=== PATIENT | male | born 1950 | race Caucasian/White ===

== ENCOUNTER → 2023-12-08 11:17 | Outpatient (REF) | payer MEDICARE, OTHER, SELFPAY | LOC: RAD 11:17 | PROVIDERS: ATTENDING PHYSICIAN Nurse Practitioner Adult Health; FAMILY PHYSICIAN Family Medicine | DX: Z87.891 Personal history of nicotine dependence (principal) | CPT/HCPCS: 71271 ==

== ENCOUNTER → 2023-12-29 11:21 | Outpatient (REF) | payer MEDICARE, OTHER, SELFPAY | LOC: HWRAD 11:21 | PROVIDERS: ATTENDING PHYSICIAN Family Medicine | DX: R10.32 Left lower quadrant pain (principal); R19.4 Change in bowel habit | CPT/HCPCS: 74177; Q9967 ==

== ENCOUNTER → 2025-01-31 13:13 | Outpatient (REF) | payer MEDICARE, OTHER, SELFPAY | LOC: HWRAD 13:13 | PROVIDERS: ATTENDING PHYSICIAN Family Medicine | DX: Z87.891 Personal history of nicotine dependence (principal) | CPT/HCPCS: 71271 ==

== ENCOUNTER 2025-02-26 06:17 | Day surgery (SDC) | payer MEDICARE, OTHER, SELFPAY ==
[2025-02-19 08:57] LABS: Hematocrit 46.9 % (39.0-52.0); Hemoglobin 16.1 g/dL (13.0-18.0); Mean Corp Hgb Conc. 34.3 g/dL (33.0-37.0); Mean Corpuscular Volume 92.3 fL (80.0-94.0); Platelet Count 207 10^3/uL (130-400); Red Cell Dist. Width 12.2 % (11.5-14.5)
[2025-02-19 09:04] LABS: INR 0.95; PT 13.2 Sec (11.4-14.6)
[2025-02-19 09:05] LABS: APTT 29.9 Sec (23.4-35.0)
[2025-02-19 09:59] LABS: Blood Urea Nitrogen 17 mg/dl (9-20); Calcium 9.5 mg/dl (8.4-10.2); Carbon Dioxide 27 mmol/L (22-30); Chloride 103 mmol/L (98-107); Glucose 107 mg/dl (70-99); Potassium 4.2 mmol/L (3.5-5.1); Sodium 139 mmol/L (135-145); eGFR > 60.00
[2025-02-19 14:05] VITALS: BMI 28.7
[2025-02-26] VITALS (10 sets, daily range): BP systolic 133–169; BP diastolic 76–101; BMI 28.7
[2025-02-26] MEDS: VENTOLIN NEBULES 2.5 MG INH (07:10)
[2025-02-26] MEDS: ERYTHROMYCIN 0.5% OPHTHALMIC OINTMENT 1 APPLIC OPHTH (10:57)
== END 2025-02-26 12:00 | disposition home or self-care (01) ==
LOC: GI 06:17
PROVIDERS: ATTENDING PHYSICIAN Internal Medicine Critical Care Medicine; FAMILY PHYSICIAN Family Medicine
DX: R91.8 Other nonspecific abnormal finding of lung field (principal); R91.1 Solitary pulmonary nodule; C34.11 Malignant neoplasm of upper lobe, right bronchus or lung
CPT/HCPCS: 31629; 31628; 31624; 31627; 31623; 31654; 36415; 71045; 76000; 80048; 81459; 85027; 85610; 85730; 87015; 87070; 87102; 87116; 87205; 88112; 88173; 88305; 88333; 88341; 88342; 94640; C1887

== ENCOUNTER → 2025-03-19 12:10 | Outpatient (REF) | payer MEDICARE, OTHER, SELFPAY | LOC: RAD 12:10 | PROVIDERS: ATTENDING PHYSICIAN Internal Medicine Hematology & Oncology; FAMILY PHYSICIAN Family Medicine | DX: C34.11 Malignant neoplasm of upper lobe, right bronchus or lung (principal) | CPT/HCPCS: 71260; Q9967 ==

== ENCOUNTER 2025-05-09 11:42 | Inpatient (IN) | payer MEDICARE, OTHER, SELFPAY ==
[2025-04-28 11:35] LABS: Hematocrit 48.1 % (39.0-52.0); Hemoglobin 16.6 g/dL (13.0-18.0); Mean Corp Hgb Conc. 34.5 g/dL (33.0-37.0); Mean Corpuscular Volume 90.6 fL (80.0-94.0); Platelet Count 211 10^3/uL (130-400); Red Cell Dist. Width 12.2 % (11.5-14.5)
[2025-04-28 11:38] LABS: INR 0.99; PT 13.4 Sec (11.4-14.6)
[2025-04-28 11:39] LABS: APTT 29.9 Sec (23.4-35.0)
[2025-04-28 11:59] LABS: ALT (SGPT) 74 U/L (0-50); AST (SGOT) 48 U/L (17-59); Albumin 4.6 g/dl (3.5-5.0); Alkaline Phosphatase 62 U/L (38-126); Blood Urea Nitrogen 20 mg/dl (9-20); Calcium 9.3 mg/dl (8.4-10.2); Carbon Dioxide 29 mmol/L (22-30); Chloride 100 mmol/L (98-107); Glucose 102 mg/dl (70-99); Potassium 4.0 mmol/L (3.5-5.1); Sodium 137 mmol/L (135-145); Total Protein 7.1 g/dl (6.3-8.2); eGFR > 60.00
[2025-04-28 14:04] VITALS: BMI 29.9
[2025-05-09] VITALS (11 sets, daily range): BP systolic 115–149; BP diastolic 68–80; BMI 29.9
[2025-05-09] MEDS: TYLENOL 1000 MG PO (11:58)
[2025-05-09] MEDS: NEURONTIN 300 MG PO ×2 (11:58→22:04)
[2025-05-09] MEDS: HEPARIN 5000 UNITS SC ×2 (11:59→20:05)
[2025-05-09] MEDS: NORMOSOL-R/PLASMALYTE-A 1000 IV (12:19)
[2025-05-09] MEDS: DILAUDID 0.25 MG IV (16:45)
--- NOTE | 2025-05-09 16:45 | PTCARENOTE ---
Patient admitted from [facility] minimally invasive resection of right upper lung with lymph node dissection.The patient is alert and oriented and rates his pain at a 4 out of 10.All dressings are intact without drainage.The chest tube is to water
seal only with some serosanguineous drainage. Vital signs are stable.The patient is in his bed with the call frankel in place.
[2025-05-09] MEDS: D5/0.9% SODIUM CHLORIDE 1000 IV (18:24)
[2025-05-09] MEDS: DILAUDID 0.5 MG IV (18:26)
[2025-05-09] MEDS: TYLENOL 650 MG PO ×2 (20:04→23:44)
[2025-05-09] MEDS: COLACE 100 MG PO (20:04)
[2025-05-09] MEDS: DILAUDID 1 MG IV (20:23)
[2025-05-09] MEDS: THIAMINE INJECTION 200 MG IV (23:44)
[2025-05-09] MEDS: VITAMIN B1 100 MG PO (23:44)
[2025-05-10 03:42] VITALS: BP 122/62
[2025-05-10] MEDS: TYLENOL PO (04:55)
[2025-05-10 06:17] LABS: Hematocrit 42.4 % (39.0-52.0); Hemoglobin 15.0 g/dL (13.0-18.0); Mean Corp Hgb Conc. 35.4 g/dL (33.0-37.0); Mean Corpuscular Volume 90.8 fL (80.0-94.0); Platelet Count 186 10^3/uL (130-400); Red Cell Dist. Width 12.0 % (11.5-14.5)
[2025-05-10] MEDS: ROXICODONE 5 MG PO (06:29)
[2025-05-10 06:40] LABS: ALT (SGPT) 35 U/L (0-50); AST (SGOT) 52 U/L (17-59); Albumin 3.9 g/dl (3.5-5.0); Alkaline Phosphatase 46 U/L (38-126); Blood Urea Nitrogen 15 mg/dl (9-20); Calcium 8.2 mg/dl (8.4-10.2); Carbon Dioxide 27 mmol/L (22-30); Chloride 96 mmol/L (98-107); Estimated Creatinine Clearance 93 ml/min; Glucose 181 mg/dl (70-99); Potassium 4.1 mmol/L (3.5-5.1); Sodium 131 mmol/L (135-145); Total Protein 6.3 g/dl (6.3-8.2); eGFR > 60.00
[2025-05-10 07:20] VITALS: BP 129/75
[2025-05-10] MEDS: D5/0.9% SODIUM CHLORIDE 1000 IV (07:32)
[2025-05-10] MEDS: COLACE 100 MG PO ×2 (08:48→19:44)
[2025-05-10] MEDS: VITAMIN B1 100 MG PO (08:48)
[2025-05-10] MEDS: NEURONTIN 300 MG PO ×3 (08:48→22:25)
[2025-05-10] MEDS: TYLENOL 650 MG PO ×4 (08:48→19:44)
[2025-05-10] MEDS: HEPARIN 5000 UNITS SC (08:49)
[2025-05-10] MEDS: THIAMINE INJECTION 200 MG IV ×2 (08:50→19:44)
[2025-05-10] MEDS: FOLVITE 1 MG PO (08:50)
[2025-05-10 11:49] VITALS: BP 152/85; PULSE 66; O2SAT 95
--- NOTE | 2025-05-10 12:23 | W.PN.GENERIC ---
Assessment / Plan
-
S/p right lung resection POD#1
Stable
Chest tube removed
Will CXR in 3 hrs then in AM
OOB and ambulate
Await final path
Physician Progress Note
Subjective
No co. Good pain control. No SOB
Objective
Vital Signs
Temp Pulse Resp BP Pulse Ox
97.9 F 67 16 129/75 95
05/10/25 07:20 05/10/25 07:20 05/10/25 07:20 05/10/25 07:20 05/10/25 07:20
Lab Results
05/10/25 05:51
05/10/25 05:51
Chest - CTA x2
Chest tube without airleak
CXR without PTX
[2025-05-10] MEDS: NORVASC 10 MG PO (12:28)
[2025-05-10] MEDS: ZESTRIL 40 MG PO (12:28)
[2025-05-10] MEDS: LIPITOR 20 MG PO (12:28)
[2025-05-10] MEDS: BYSTOLIC 10 MG PO (12:28)
[2025-05-10 12:35] VITALS: BP 137/69
[2025-05-10] MEDS: TORADOL 15 MG IV ×2 (14:02→19:44)
[2025-05-10 15:41] VITALS: BP 130/74
--- NOTE | 2025-05-10 17:31 | OR.RPT ---
Operative Report
Operative Report
Date of Operation: May 09, 2025
Preoperative Diagnosis: Right Upper Lobe Lung Cancer - [id number]
Postoperative Diagnosis: Same
Surgeon: Parviz Mills M.D.
Operation: Minimally invasive wedge resection of the right upper lobe lung cancer � [id number]
Mediastinal lymph node dissection - [id number]
Anesthesia: GET
Estimated Blood Loss: Minimal
Drains: Chest tube in the right thorax
Specimen: Right upper lobe cancer and mediastinal lymph nodes
Complications: None
Procedure:
The patient was taken to the operating room and placed in the usual supine position. After an adequate double-lumen endotracheal tube was placed, the patient was positioned in the left decubitus position with the right chest up. The right chest was
prepped and draped in the usual sterile fashion. At this time, a 6 cm mid-axillary incision was made with a #10 blade, and this was taken through the skin into the subcutaneous tissue. The serratus anterior muscle overlying the 5th intercostal space
was identified and split along the course of the muscle fibers. The intercostal muscle of the fifth intercostal space was divided, and the right chest was entered. The right chest was explored. The tumor in the right upper lobe was identified. The
tumor was wedge resected with 2 cm margins with Endo-JACKELIN purple tri-marybeth. The intraoperative pathology evaluations showed non-small cell lung cancer. The margins were clean. At this time, mediastinal lymph node dissection was performed. The lymph
nodes from stations 4 to 10 were taken and sent to pathology for permanent section. Hemostasis was obtained. A 28 Divehi chest tube was placed through the anterior thoracostomy incision and anchored to the skin using a #2 nylon suture. The ribs were
re-approximated with 1 Vicryl in the transcostal fascia. The serratus anterior muscle was also re-approximated with 1 Vicryl in a running fashion. The fascia was approximated with 1 Vicryl in a running fashion. The subcutaneous tissue was
re-approximated with 3-0 Vicryl in a running fashion. The skin was approximated with 4-0 Monocryl in a running subcuticular fashion. Steri-strips and a sterile dressing were placed. The chest tube was connected to the Pleurovac. The patient was
placed back in the supine position and extubated without any problems. The final needle, sponge, and instrument counts were correct. The patient was transferred to the recovery room.
[2025-05-10 19:52] LABS: Hepatitis C Antibody Negative (Negative)
[2025-05-10] MEDS: VITAMIN B1 PO (19:56)
[2025-05-10 23:09] VITALS: BP 115/63
[2025-05-11] MEDS: TORADOL 15 MG IV ×3 (00:44→12:37)
[2025-05-11] MEDS: TYLENOL PO ×2 (00:44→04:25)
[2025-05-11 07:50] VITALS: BP 140/83
[2025-05-11] MEDS: NEURONTIN 300 MG PO (08:55)
[2025-05-11] MEDS: VITAMIN B1 100 MG PO (08:55)
[2025-05-11] MEDS: THIAMINE INJECTION 200 MG IV (08:55)
[2025-05-11] MEDS: FOLVITE 1 MG PO (08:55)
[2025-05-11] MEDS: COLACE 100 MG PO (08:55)
[2025-05-11] MEDS: TYLENOL 650 MG PO ×2 (08:55→11:59)
--- NOTE | 2025-05-11 10:45 | W.DS.TRANS ---
DC Summary - Ambulatory Services Representative
-
Discharge Instructions:
Instructions:
Stand-Alone Forms:
Changes to Home Medications: No
Discharge Medications:
DC Medications w/original date entered in [employer]
amlodipine 10 mg-benazepril 40 mg capsule 1 cap PO DAILY@119902/24/25
aspirin 81 mg tablet,delayed release 81 mg PO DAILY@119902/24/25
atorvastatin 20 mg tablet 20 mg PO DAILY@119902/24/25
chlorthalidone 25 mg tablet 25 mg PO DAILY@119902/24/25
cholecalciferol (vitamin D3) 125 mcg (5,000 unit) tablet (Vitamin D3) 125 mcg PO DAILY@119902/24/25
magnesium glycinate 120 mg (as glycinate) capsule 120 mg PO DAILY@119902/24/25
nebivolol 10 mg tablet (Bystolic) 10 mg PO DAILY@119902/24/25
vitamin B complex 1 tab PO DAILY@119902/24/25
Home Medication Changes
Pending Results: No
--- NOTE | 2025-05-11 10:48 | W.DCSUMMARY ---
Addendum entered and electronically signed by Parviz Mills MD 05/11/25 11:06:
the discharge summary below is for the wrong patient.
This is the correct discharge summary for Benji Martino
NAME: Benji Martino (1950)
DATE OF ADMISSION: 05/09/25
DATE OF DISCHARGE: 05/11/25
DIAGNOSIS: Right upper lobe lung cancer
PROCEDURE: Minimally invasive resection of the right upper lobe cancer and mediastinal lymph node dissection
SURGEON: Parviz Mills M.D.
HISTORY OF PRESENT ILLNESS:
He is a 74-year-old man who presented to me for a surgical opinion regarding a recently diagnosed right upper lobe lung cancer. Due to his smoking history, he has been undergoing annual screening chest CT scans. His last screening chest CT scan,
done on 01/31/25, showed several ground-glass densities. However, the anterior right upper lobe density, measuring 2 x 1.5 cm, showed an increasing solid component of 0.5 cm. Otherwise, other densities remained stable. A subsequent chest CT scan with
IV contrast confirmed the above findings with no obvious evidence of mediastinal lymphadenopathy. On 02/26/25, he underwent a navigational bronchoscopy and EBUS, which showed no abnormal-appearing mediastinal lymph nodes, including bilateral juliana. The
biopsy of the right upper lobe density revealed findings consistent with adenocarcinoma. On 03/07/25, he also had a PET scan, showing the same right upper lobe density with an SUV of 3.8 and mild, non-focal FDG uptake in bilateral juliana with an SUV of
2.4, consistent with physiological uptakes. I reviewed the CT and PET scan images and the official readings in my office. He had a pulmonary function test on 02/14/25, which demonstrated an FVC of 5.06 L (109%), an FEV of 2.98 L (88%), and a DLCO of
78%. He has a 35-year smoking history, which he quit 20 years ago. He denied fevers, chills, chest pain, dyspnea, cough, or recent weight loss.
PAST MEDICAL HISTORY: CAD, HTN, atrial flutter ablation in 2006, COPD, emphysema, and HAYLEE on CPAP
ALLERGIES: Augmentin.
MEDICATIONS:
Amlodipine 10 mg-benazepril 40 mg capsule daily
Aspirin 81 mg tablet daily
atorvastatin 20 mg tablet daily
chlorthalidone 25 mg tablet daily
Magnesium 120 mg (as glycinate) capsule daily
nebivolol 10 mg tablet daily
REVIEW OF SYSTEMS: Unremarkable.
SOCIAL HISTORY: No EtOH or tobacco use.
FAMILY HISTORY: Non-contributory.
PHYSICAL EXAMINATION:
He was anicteric. The heart had a regular rate. The chest was clear bilaterally. He had no cervical, supraclavicular, or axillary lymphadenopathy.
HOSPITAL COURSE: He presented to the hospital and underwent an eventful surgery. Postoperatively, he was transferred to the surgical floor, where he recovered well without any problem. On postoperative date #2, he was discharged.
CONDITION ON DISCHARGE: Stable
FOLLOW-UP: 1-2 weeks.
Original Note:
Discharge Summary
Discharge Data
Date of Admission: 05/09/25
Date of Discharge: 05/11/25
-
Pending Results: No
Hospital Course
DIAGNOSIS: Left adrenal tumor
PROCEDURE: Resection of the left adrenal tumor
SURGEON: Parviz Mills M.D.
HISTORY OF PRESENT ILLNESS:
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 Currently, he is taking targeted therapy (dabrafenib and trametinib), with no significant side effects. On 04/01/2025, he had a
follow-up PET scan, which revealed an enlarging left adrenal tumor, which measured 2.7 cm. On 10/17/2024, this measured 1.9 cm. Furthermore, the SUV value has increased to 20.76 from 16.27. We reviewed the PET scan films and official readings in my
office. 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 He had no new complaints today.
PAST MEDICAL HISTORY: melanoma, DM, HTN, NM, s/p CABG, kidney transplant,
and aortic valve replacement
ALLERGIES: no medications.
MEDICATIONS:
� tacrolimus (PROGRAF) 0.5 mg capsule, Take 0.5 mg by mouth every 12 (twelve) hours
� amiodarone (PACER ONE) 100 mg tablet, Take 100 mg by mouth daily
� amLODIPine (NORVASC) 10 mg tablet, Take 10 mg by mouth daily
� apixaban (ELIOUIS) 5 mg tablet. Take by mouth every 12 hours
� aspirin 81 mg chewable tablet, Chew 81 mg daily
� calcium carbonate (OS�LISA) 600 mg calcium (1,500 mg) tablet daily
� carvedilol (COREG) 25 mg tablet, Take 25 mg by mouth 2 (two) times a day with a meal
� dabrafenib (TAFINLARI 75 mg capsule. Take 2 capsules (150 mg total) every 12 hours
� empagliftozin (Jardiance) 25 mg tablet, Take 10 mg by mouth daily
� ferrous sulfate 325 mg (65 mg imn) EC tablet Take 325 mg 3 times a day with meals.,
� furosemide (LASIX) 20 mg tablet, Take 20 mg by mouth 2 (two) times a day
� losartan (COZAAR) 100 mg tablet. Take 100 mg by mouth daily
� magnesium oxide (MAG-OX) 400 mg (241.3 mg magnesium) tablet daily
� metFORMIN (GLUCOPHAGE)500 mg tablet. Take 500 mg 2 times a day with a meal
� multivitamin with minerals tablet, Take 1 tablet by mouth daily
� rnycophenolate (CELLCEPT) 500 mg tablet, Take by mouth 2 (two) Limes a day
� rosuvastatin (CRESTOR) 20 mg tablet. Take 20 mg by mouth daily
� trarnetinil (MEKINIST) 2 mg tablet daily
REVIEW OF SYSTEMS: Unremarkable.
SOCIAL HISTORY: No EtOH or tobacco use.
FAMILY HISTORY: Non-contributory.
PHYSICAL EXAMINATION:
The back surgical scar has healed well, with no evidence of recurrent disease. There was no evidence of satellitosis or in-transit metastasis. The lymph node basins in the cervical, axillary, supraclavicular, and inguinal regions revealed no
evidence of lymphadenopathy. His lungs were clear. His heart had a regular rate and rhythm.
HOSPITAL COURSE:
He presented to the hospital and underwent an eventful surgery. Postoperatively, he was transferred to the surgical floor, where he recovered well without any problem. On postoperative date #2, he was discharged.
CONDITION ON DISCHARGE: Stable
FOLLOW-UP: 1-2 weeks.
Discharge Plan
-
Patient Disposition: Home (Routine Discharge)
Discharge Diagnosis/Procedures: Right upper lobe lung cancer
Condition: Fair
Diet: As tolerated
Activity: As tolerated and No strenuous activity
Driving Restrictions: Not until seen by your Dr
Bathing Restrictions: OK to Shower
Activity Restrictions/Additional Instructions:
Call Dr. Mills's office for a follow-up appointment. ([phone])
Referrals:
Bogdan Warren MD [Family Provider, [facility]]
Prescriptions:
Continued
atorvastatin 20 mg Tablet
20 mg PO DAILY@1200
chlorthalidone 25 mg Tablet
25 mg PO DAILY@1200
aspirin 81 mg Tablet,Delayed Release (/Ec)
81 mg PO DAILY@1200
vitamin B complex Tablet
1 tab PO DAILY@1200
amlodipine-benazepril 10-40 mg Capsule
1 cap PO DAILY@1200
nebivolol [Bystolic] 10 mg Tablet
10 mg PO DAILY@1200
cholecalciferol (vitamin D3) [Vitamin D3] 125 mcg (5,000 unit) Tablet
125 mcg PO DAILY@1200
magnesium glycinate 120 mg Capsule
120 mg PO DAILY@1200
Discharge Orders:
Discharge Patient (As Directed); Ordered 05/11/25
Ordered By: Parviz Mills
Discharge Date and Time
Print Language: SLOVENIAN
--- NOTE | 2025-05-11 10:51 | CM ---
CM met with pt bedside
Pt and spouse reside in a 2SH with 1 BO, full flight to 2nd floor
Pt is independent with his ADLs, no ADs
Utilizes a CPAP
PCP- Bogdan Warren
Rx- [facility]
Pt is POD#2 resection R upper lobe and lymph-node dissection
Chest tube has been removed and CM observed independence throughout hallway
He will call for ride home with spouse
IMM verbally reviewed- copy provided
Discharge Disposition- home no needs, spouse transport
[2025-05-11 11:00] VITALS: BP 150/74
[2025-05-11] MEDS: NORVASC 10 MG PO (11:59)
[2025-05-11] MEDS: LIPITOR 20 MG PO (11:59)
[2025-05-11] MEDS: ZESTRIL 40 MG PO (11:59)
[2025-05-11] MEDS: BYSTOLIC 10 MG PO (11:59)
== END 2025-05-11 13:25 | disposition home or self-care (01) | DRG 165 ==
LOC: 2 SOUTH 11:42
PROVIDERS: ADMITTING PHYSICIAN Surgery; FAMILY PHYSICIAN Family Medicine
PROC: 07B70ZX Excision of Thorax Lymphatic, Open Approach, Diagnostic (ICD-10-PCS; 2025-05-10)
PROC: 0BBC0ZX Excision of Right Upper Lung Lobe, Open Approach, Diagnostic (ICD-10-PCS; 2025-05-10)
DX: C34.11 Malignant neoplasm of upper lobe, right bronchus or lung (principal); D49.7 Neoplasm of unspecified behavior of endocrine glands and other parts of nervous system; E11.9 Type 2 diabetes mellitus without complications; Z85.820 Personal history of malignant melanoma of skin; Z87.891 Personal history of nicotine dependence; Z95.1 Presence of aortocoronary bypass graft; Z95.2 Presence of prosthetic heart valve
CPT/HCPCS: 36415; 71045; 80053; 85027; 85610; 85730; 86803; 86850; 86900; 86901; 88305; 88307; 88331; 97162; 97163; C1776